=== PATIENT | male | born 1990 | race Two or more races ===

== ENCOUNTER 2023-10-23 03:08 | Inpatient (IN) | payer OTHER, SELFPAY ==
[2023-10-23] VITALS (13 sets, daily range): BP systolic 118–154; BP diastolic 72–98; PULSE 72–100; RESP 12–18; TEMP 36.1–37.1; O2SAT 92–99; BMI 23.7
--- NOTE | ~2023-10-23 | XR_ITS ---
EXAMINATION: XR ANKLE, LEFT CLINICAL INFORMATION: Injury/pain COMPARISON: None available. TECHNIQUE: AP, lateral, and mortise views of the left ankle. FINDINGS: There is a spiral fracture of the distal tibial diametaphysis, with one cortex width lateral displacement of the dominant distal fracture fragment with respect to the proximal tibia, and a tiny comminution fragment medially. There is a comminuted distal fibular diametaphyseal fracture with one half shaft width posterior displacement of the distal fibular fracture fragment with respect to the proximal fibula and mild apex anterior angulation, with a mildly angulated lateral comminution fragment. The fracture extends to the superolateral aspect of the ankle mortise, however the ankle mortise remains congruent. Associated soft tissue swelling about the ankle. XR/XR ankle LT min 3V IMPRESSION: * Distal tibial and fibular fractures as described. * Ankle mortise remains congruent. * Soft tissue swelling about the ankle.
--- NOTE | ~2023-10-23 | FL_ITS ---
EXAMINATION: XR FLUOROSCOPY WITH IMAGES CLINICAL INFORMATION: Left tibial IM nail. Tibial ORIF COMPARISON: X-rays of the left ankle performed earlier same day TECHNIQUE: Fluoroscopy Supervised By: Dr. Underwood. Fluoroscopy Time: 2.7 minutes. Cumulative Dose: 8.93 mGy. DAP: 0.148 Gycm2. Images: 6. FINDINGS: Intraoperative imaging demonstrates orthopedic fixation with antegrade lukas with interlocking screws in the tibia crossing the previously noted tibial fracture with overall improved alignment. Plate and screw fixation extending along the lateral aspect of the distal fibula crossing the previous noted fracture with improved alignment. FL/FL guidance in OR IMPRESSION: Intraoperative imaging for ORIF of left ankle fracture. Improved alignment compared with preoperative radiographs
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
[2023-10-23] MEDS: Morphine Sulfate Immed Release 15 MG TABLET PO (04:16)
[2023-10-23 04:56] LABS: Basophils Percent Auto 0.3 % (0-2); Eosinophils Absolute Auto 0.1 X10*3/uL (0.0-0.4); Eosinophils Percent Auto 0.6 % (0-4); Hematocrit 42.1 % (42.0-52.0); Hemoglobin 15.5 g/dl (14.0-18.0); Imm Gran Abs Auto 0.03 X10*3/uL (0.00-0.03); Imm Gran Pct Auto 0.3 % (0.0-0.4); Lymphocytes Absolute Auto 1.3 X10*3/uL (1.2-4.9); Lymphocytes Percent Auto 10.8 % (20-40); MANUAL DIFF FLAG NO; Mean Corpuscular HGB Conc 36.8 g/dl (31.0-36.0); Mean Corpuscular Hemoglobin 34.6 pg (27.0-33.0); Mean Platelet Volume 9.3 fL (9.4-12.4); Monocytes Absolute Auto 0.5 X10*3/uL (0.1-1.2); Platelet Count 278 X10*3/uL (160-400); Red Blood Count 4.48 X10*6/uL (4.60-5.80); Red Cell Distribution Width 11.5 % (11.0-16.0); White Blood Count 11.9 X10*3/uL (4.8-10.8)
[2023-10-23 05:09] LABS: Alanine Aminotransferase 30 U/L (0-40); Alkaline Phosphatase 64 U/L (39-117); Anion Gap 16 (12-20); Aspartate Amino Transferase 27 U/L (5-37); Bilirubin Total 0.8 mg/dL (0.0-1.0); Blood Urea Nitrogen 11 mg/dL (9-16); Calcium 9.6 mg/dL (8.4-10.2); Carbon Dioxide 22 mmol/L (22-29); Chloride 107 mmol/L (96-108); Creatinine Clr Calc Pharmacy 112.8; Estimated Glomerular Filt Rate > 60; Ethanol 197 mg/dL; Glucose Random 117 mg/dL (60-115); Magnesium 2.2 mg/dL (1.6-2.6); Potassium 3.7 mmol/L (3.3-5.1); Sodium 141 mmol/L (135-145); Total Protein 8.2 g/dL (6.5-8.0)
[2023-10-23] MEDS: HYDROmorphone HCl 2 MG/ML VIAL IVPUSH (05:09)
[2023-10-23] MEDS: ondansetron HCL 4 MG/2 ML VIAL IVPUSH (05:09)
[2023-10-23] MEDS: 0.9 % Sodium Chloride 1,000 ML 999 ML IV (05:13)
--- NOTE | 2023-10-23 05:22 | PC.NURSE ---
morphine not effective per pt. pt medicated per MAR with dilaudid. at bedside for splint to L leg. IVF infusing. pt resting comfortably in bed at this time
[2023-10-23] MEDS: HYDROmorphone HCl 0.5 MG/0.5 ML SYRINGE 0.25 MG IVPUSH ×3 (08:23→22:08)
[2023-10-23] MEDS: Lactated Ringers 1,000 ML 100 ML IVCONT (08:24)
[2023-10-23] MEDS: 0.9 % Sodium Chloride Flush 3 ML SYRINGE IVFLUSH (08:25)
[2023-10-23] MEDS: oxyCODONE HCl ER 10 MG TAB.ER.12H PO ×2 (10:08→20:08)
--- NOTE | 2023-10-23 10:17 | PHA.MEDREC ---
Pharmacy Consult ? Medication Reconciliation Pharmacy has completed the medication reconciliation.
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
--- NOTE | 2023-10-23 11:04 | HO.ANESPROP2 ---
HPI - Anesthesia Eval Consult details Narrative: Left tibial and fibular fracture PMFSH Active Problems Active Problems: All Active Problems (Updated 10/23/23 @ 10:56 by Amando Underwood MD) Fracture of distal fibula (Acute) Fracture of tibial shaft, left, closed (Acute) Ankle fracture (Acute) Family History Family history of problems with anesthesia: No Surgical History History of Problems with Anesthesia: No Social History Social History Alcohol intake: current Alcohol intake frequency: a few times a month Smoked in Last 30 Days: No Use of substances other than those prescribed or required for medical reasons: No Advance Directives: No Advance Directives Information Provided: No Meds Allergies Allergy/AdvReac Type Severity Reaction Status Date / Time Amoxicillin Allergy Unknown Unknown Uncoded 10/23/23 03:34 Active Medications: Current Medications Acetaminophen (Acetaminophen 325 Mg Tablet) 650 mg PO Q6H PRN PRN Reason: Pain, Mild (Pain Scale 1-3) Docusate Sodium (Docusate Sodium 100 Mg Capsule) 100 mg PO BID [facility] Last Admin: 10/23/23 10:09 Dose: Not Given Hydromorphone HCl (Hydromorphone Hcl 0.5 Mg/0.5 Ml Syringe) 0.25 mg IVPUSH Q4H PRN; Protocol PRN Reason: Pain, Severe (Pain Scale 7-10) Last Admin: 10/23/23 08:23 Dose: 0.25 mg Lactated Ringer's (Lr) 1,000 mls @ 100 mls/hr IVCONT .Q10H [facility] Last Admin: 10/23/23 08:24 Dose: 100 mls/hr Cefazolin Sodium/Dextrose (Ancef) 2 gm in 50 mls @ 100 mls/hr IV PREOP ONE Stop: 10/23/23 11:27 Ondansetron HCl (Ondansetron Hcl 4 Mg/2 Ml Vial) 4 mg IVPUSH Q8H PRN PRN Reason: Nausea and Vomiting Oxycodone HCl (Oxycodone Hcl Immed Release 5 Mg Tablet) 5 mg PO Q4H PRN PRN Reason: Pain, Moderate(Pain Scale 4-6) Oxycodone HCl (Oxycodone Hcl Er 10 Mg Tab.Er.12h) 10 mg PO BID [facility] Last Admin: 10/23/23 10:08 Dose: 10 mg Sodium Chloride (0.9 % Sodium Chloride Flush 3 Ml Syringe) 3 ml IVFLUSH QSHIFT [facility] Last Admin: 10/23/23 08:25 Dose: 3 ml Home Medications Medication Instructions Recorded Confirmed Last Taken Type No Known Home Meds 10/23/23 10/23/23 Unknown History Exam Height,Weight and Vital Signs: Height 5 ft 11 in Weight 77.111 kg Last Vital Signs Temp 98.5 F 10/23/23 07:46 Pulse 82 10/23/23 07:46 Resp 14 10/23/23 07:46 BP 119/72 10/23/23 07:46 Pulse Ox 99 10/23/23 07:46 O2 Del Method Room Air 10/23/23 07:46 Pertinent Lab Results Pertinent Lab Results: Laboratory Tests 10/23/23 10/23/23 04:51 09:18 WBC 11.9 H RBC 4.48 L Hgb 15.5 Hct 42.1 MCV 94.0 MCH 34.6 H MCHC 36.8 H RDW 11.5 Plt Count 278 MPV 9.3 L Immature Gran % (Auto) 0.3 Neut % (Auto) 84.0 H Lymph % (Auto) 10.8 L [place] % (Auto) 4.0 Eos % (Auto) 0.6 Baso % (Auto) 0.3 Lymph # (Auto) 1.3 [place] # (Auto) 0.5 Eos # (Auto) 0.1 Baso # (Auto) 0.0 Abs Immat Gran (auto) 0.03 Absolute Neuts (auto) 10.0 H Absolute Nucleated RBC 0.000 Nucleated RBC % (auto) 0.0 Sodium 141 Potassium 3.7 Chloride 107 Carbon Dioxide 22 Anion Gap 16 BUN 11 Creatinine 1.01 Estim Creat Clear Calc 112.8 Estimated GFR > 60 Random Glucose 117 H Calcium 9.6 Magnesium 2.2 Total Bilirubin 0.8 AST 27 ALT 30 Alkaline Phosphatase 64 Total Protein 8.2 H Albumin 5.0 Ethyl Alcohol 197 Blood Type A Negative Antibody Screen NEGATIVE Airway Mallampati Class: II TM Dist: >3cm Neck ROM: Full Loose/Missing/Broken Teeth: No Heart: RRR Lungs: CTA Assessment and Plan Assessment Anesthesia Assessment: Anesthesia Plan Discussed and Chart Reviewed Final Anesthetic Review Family History of Problems with Anesthesia: No History of Problems with Anesthesia: No NPO: Yes ASA Class: I and Emergency Final Preanesthetic Review: No Changes in Pt Med Stat, Meds/Allgs Chart Reviewed, Consent Obtained/Reviewed and Anes Risks/Benef Reviewed Patient Risk: Low Procedure Risk: Intermediate Anesthetic Plan Anesthetic Plan: GA Disposition: Standard PACU
--- NOTE | 2023-10-23 12:14 | PC.NURSE ---
pt transported to OR
--- NOTE | 2023-10-23 16:21 | MHC.CM.PN ---
CM ATTEMPTED TO SEE PT WHO WAS OFF UNIT
--- NOTE | 2023-10-23 18:09 | P.BOP_ITS ---
Brief Operative Note Date of Service: 10/23/23 Pre-op diagnosis: left distal tib/fib fx Post-op diagnosis: same Procedure: IMN left tibia ORIF left fibula Implants: Gilead Alpha [id number] imn with 2 distal and 2 proximal interlocking screws Natanael distal fibula plate Surgeon: Amando Underwood MD Anesthesia: GETA Was an Turbogenerator Operator used for this Procedure?: No Estimated blood loss (mL): 200 Tourniquet time (min): 100 IV fluids (mL): 1,500 Pathology: none sent Condition: stable Disposition: PACU
[2023-10-23] MEDS: Acetaminophen 1,000 MG/100 ML PIGGYBACK 400 MG IV (18:27)
[2023-10-23] MEDS: HYDROmorphone HCl 0.5 MG/0.5 ML SYRINGE IVPUSH (18:34)
[2023-10-23] MEDS: oxyCODONE HCl Immed Release 5 MG TABLET PO (20:08)
[2023-10-23] MEDS: Docusate Sodium 100 MG CAPSULE PO (20:09)
[2023-10-23] MEDS: ceFAZolin Sodium/Dextrose,Iso 2 GM/50 ML PIGGYBACK IV (20:46)
[2023-10-24] VITALS (7 sets, daily range): BP systolic 131–157; BP diastolic 73–94; PULSE 77–100; RESP 15–18; TEMP 36.3–37; O2SAT 96–99
[2023-10-24] MEDS: oxyCODONE HCl Immed Release 5 MG TABLET 10 MG PO ×5 (00:23→16:29)
[2023-10-24] MEDS: Lactated Ringers 1,000 ML 100 ML IVCONT ×3 (00:57→21:58)
[2023-10-24] MEDS: HYDROmorphone HCl 0.5 MG/0.5 ML SYRINGE IVPUSH ×8 (01:04→22:06)
[2023-10-24 05:39] LABS: MANUAL DIFF FLAG NO
[2023-10-24 05:49] LABS: Basophils Percent Auto 0.3 % (0-2); Eosinophils Absolute Auto 0.1 X10*3/uL (0.0-0.4); Eosinophils Percent Auto 1.5 % (0-4); Hematocrit 34.9 % (42.0-52.0); Hemoglobin 12.7 g/dl (14.0-18.0); Imm Gran Abs Auto 0.03 X10*3/uL (0.00-0.03); Imm Gran Pct Auto 0.3 % (0.0-0.4); Lymphocytes Absolute Auto 1.6 X10*3/uL (1.2-4.9); Mean Corpuscular HGB Conc 36.4 g/dl (31.0-36.0); Mean Corpuscular Hemoglobin 35.5 pg (27.0-33.0); Mean Corpuscular Volume 97.5 fL (80.0-98.0); Mean Platelet Volume 10.1 fL (9.4-12.4); Monocytes Absolute Auto 1.2 X10*3/uL (0.1-1.2); Monocytes Percent Auto 12.7 % (2-11); Neutrophils Absolute Auto 6.6 x10*3/uL (2.0-8.3); Neutrophils Percent Auto 68.2 % (45-73); Platelet Count 233 X10*3/uL (160-400); Red Blood Count 3.58 X10*6/uL (4.60-5.80); Red Cell Distribution Width 11.5 % (11.0-16.0); White Blood Count 9.7 X10*3/uL (4.8-10.8)
[2023-10-24 06:07] LABS: Anion Gap 13 (12-20); Blood Urea Nitrogen 8 mg/dL (9-16); Calcium 8.8 mg/dL (8.4-10.2); Carbon Dioxide 27 mmol/L (22-29); Chloride 102 mmol/L (96-108); Creatinine Clr Calc Pharmacy 121.2; Estimated Glomerular Filt Rate > 60; Glucose Fasting 118 mg/dL (60-99); Potassium 3.8 mmol/L (3.3-5.1); Sodium 138 mmol/L (135-145)
[2023-10-24] MEDS: oxyCODONE HCl ER 10 MG TAB.ER.12H PO ×2 (08:03→21:57)
[2023-10-24] MEDS: Docusate Sodium 100 MG CAPSULE PO ×2 (08:04→21:58)
[2023-10-24] MEDS: 0.9 % Sodium Chloride Flush 3 ML SYRINGE IVFLUSH ×2 (10:10→17:25)
[2023-10-24] MEDS: Ketorolac Tromethamine 30 MG/ML VIAL IVPUSH ×2 (11:37→17:55)
--- NOTE | 2023-10-24 13:22 | PM.PNORT ---
Subjective Subjective Date of Service: 10/24/23 Principal diagnosis: left distal tib/fib fracture. POD #1 s/p ORIF Interval history: S/p ORIF. No overnight events. C/o pain Physical Exam Vital Signs: Vital Signs: Last Vital Signs Temp 97.6 F 10/24/23 10:00 Pulse 93 10/24/23 10:00 Resp 18 10/24/23 10:00 BP 141/88 H 10/24/23 10:00 Pulse Ox 96 10/24/23 10:00 O2 Del Method Room Air 10/24/23 10:00 O2 Flow Rate 2 10/23/23 18:50 BMI result Body Mass Index 23.7 Extrem: Other: inc c/d/i compartments soft foot warm and well-perfused SILT Firing ehl/ta/gc Procedures Date of Service Date of Service: 10/24/23 Progress Note: A&P Assessment and plan (1) Fracture of distal fibula: Status: Acute (2) Fracture of tibial shaft, left, closed: Status: Acute Assessment and Plan: Elevate LLE PO and IV pain control May transition to soft dorsiflexion night splint tomorrow and can initiate PT with PWB<25 lbs Continue SCDs and will begin ASA today Time Spent With Patient Time: Total time managing care of this patient today ____ minutes. Quality Stroke Does the patient have a stroke diagnosis?: No VTE Prior VTE?: No VTE Risk Level:: Surgical - moderate VTE Device Contraindication: N/A - Device Ordered VTE Drug Contraindication: Treatment Not Indicated
--- NOTE | 2023-10-24 14:12 | MHC.CM.PN ---
Male 33 s/p Tib/Fib Fxs surgical intervention cast in place. Patient lives with his uncle. He is employed as a flatbed truck driver. He is independent at baseline. His PCP is Dr Sukh Healy. He has not been seen in quite a while per pt. Pt declined the offer to document a HCP. DP Home self care. Pt will arrange for transport home.
[2023-10-24] MEDS: Acetaminophen 325 MG TABLET 650 MG PO ×2 (14:28→21:58)
[2023-10-24] MEDS: Aspirin Enteric Coated 81 MG TABLET.DR 162 MG PO (21:58)
[2023-10-25] VITALS (8 sets, daily range): BP systolic 114–145; BP diastolic 57–84; PULSE 79–99; RESP 16–18; TEMP 35.9–37; O2SAT 94–100
[2023-10-25] MEDS: HYDROmorphone HCl 0.5 MG/0.5 ML SYRINGE IVPUSH ×4 (03:18→21:03)
[2023-10-25] MEDS: Lactated Ringers 1,000 ML 100 ML IVCONT (06:07)
[2023-10-25 07:15] LABS: MANUAL DIFF FLAG NO
[2023-10-25 07:18] LABS: Basophils Percent Auto 0.3 % (0-2); Eosinophils Absolute Auto 0.2 X10*3/uL (0.0-0.4); Eosinophils Percent Auto 2.6 % (0-4); Imm Gran Abs Auto 0.04 X10*3/uL (0.00-0.03); Imm Gran Pct Auto 0.5 % (0.0-0.4); Lymphocytes Absolute Auto 0.9 X10*3/uL (1.2-4.9); Mean Corpuscular HGB Conc 36.4 g/dl (31.0-36.0); Mean Corpuscular Hemoglobin 35.7 pg (27.0-33.0); Mean Corpuscular Volume 98.2 fL (80.0-98.0); Mean Platelet Volume 10.1 fL (9.4-12.4); Monocytes Absolute Auto 0.9 X10*3/uL (0.1-1.2); Neutrophils Absolute Auto 5.3 x10*3/uL (2.0-8.3); Neutrophils Percent Auto 72.6 % (45-73); Platelet Count 190 X10*3/uL (160-400); Red Blood Count 3.36 X10*6/uL (4.60-5.80); Red Cell Distribution Width 11.4 % (11.0-16.0); White Blood Count 7.3 X10*3/uL (4.8-10.8)
[2023-10-25] MEDS: oxyCODONE HCl ER 10 MG TAB.ER.12H PO ×2 (07:29→19:47)
[2023-10-25] MEDS: Acetaminophen 325 MG TABLET 650 MG PO ×3 (07:30→19:46)
[2023-10-25] MEDS: Docusate Sodium 100 MG CAPSULE PO ×2 (07:30→19:46)
[2023-10-25] MEDS: Aspirin Enteric Coated 81 MG TABLET.DR 162 MG PO ×2 (07:30→19:46)
[2023-10-25 07:41] LABS: Anion Gap 12 (12-20); Blood Urea Nitrogen 9 mg/dL (9-16); Calcium 9.4 mg/dL (8.4-10.2); Carbon Dioxide 27 mmol/L (22-29); Chloride 101 mmol/L (96-108); Estimated Glomerular Filt Rate > 60; Glucose Fasting 105 mg/dL (60-99); Potassium 3.7 mmol/L (3.3-5.1); Sodium 136 mmol/L (135-145)
--- NOTE | 2023-10-25 10:37 | PM.PNORT ---
Subjective Subjective Date of Service: 10/25/23 Principal diagnosis: left distal tib/fib fracture. POD #1 s/p ORIF Interval history: .POD 2 s/p Lt tibia IMN with ORIF distal fibula no overnight events pain control improving denies sob, palpitations, chest pain Physical Exam Vital Signs: Vital Signs: Last Vital Signs Temp 98.6 F 10/25/23 07:29 Pulse 91 10/25/23 07:29 Resp 16 10/25/23 07:29 BP 114/57 L 10/25/23 07:29 Pulse Ox 94 10/25/23 07:29 O2 Del Method Room Air 10/25/23 03:13 O2 Flow Rate 2 10/23/23 18:50 BMI result Body Mass Index 23.7 Extrem: Other: inc c/d/i compartments soft foot warm and well-perfused SILT Firing ehl/ta/gc Procedures Date of Service Date of Service: 10/25/23 Progress Note: A&P Assessment and plan (1) Fracture of distal fibula: Status: Acute (2) Fracture of tibial shaft, left, closed: Status: Acute Assessment and Plan: Elevate LLE PO and IV pain control transition to soft dorsiflexion night splint today PT with PWB<25 lbs Continue SCDs and continue ASA Continued need for inpatient stay: PT eval ongoing need for IV pain medication Time Spent With Patient Time: Total time managing care of this patient today ____ minutes. Quality Stroke Does the patient have a stroke diagnosis?: No VTE Prior VTE?: No VTE Risk Level:: Surgical - moderate VTE Device Contraindication: N/A - Device Ordered VTE Drug Contraindication: Treatment Not Indicated
[2023-10-25] MEDS: oxyCODONE HCl Immed Release 5 MG TABLET 10 MG PO ×3 (11:07→19:59)
[2023-10-25] MEDS: 0.9 % Sodium Chloride Flush 3 ML SYRINGE IVFLUSH (15:56)
[2023-10-26] MEDS: Acetaminophen 325 MG TABLET 650 MG PO ×2 (01:26→07:47)
[2023-10-26] MEDS: 0.9 % Sodium Chloride Flush 3 ML SYRINGE IVFLUSH ×2 (01:26→07:47)
[2023-10-26] MEDS: HYDROmorphone HCl 0.5 MG/0.5 ML SYRINGE IVPUSH (01:34)
[2023-10-26 03:16] VITALS: BP 125/77; PULSE 91; RESP 16; TEMP 35.3; O2SAT 98
[2023-10-26] MEDS: oxyCODONE HCl Immed Release 5 MG TABLET 10 MG PO ×2 (06:37→10:57)
[2023-10-26 07:05] LABS: MANUAL DIFF FLAG NO
[2023-10-26 07:08] LABS: Basophils Percent Auto 0.2 % (0-2); Eosinophils Absolute Auto 0.2 X10*3/uL (0.0-0.4); Hematocrit 31.7 % (42.0-52.0); Hemoglobin 11.6 g/dl (14.0-18.0); Imm Gran Abs Auto 0.02 X10*3/uL (0.00-0.03); Imm Gran Pct Auto 0.3 % (0.0-0.4); Lymphocytes Absolute Auto 1.5 X10*3/uL (1.2-4.9); Lymphocytes Percent Auto 24.5 % (20-40); Mean Corpuscular HGB Conc 36.6 g/dl (31.0-36.0); Mean Corpuscular Hemoglobin 35.6 pg (27.0-33.0); Mean Corpuscular Volume 97.2 fL (80.0-98.0); Mean Platelet Volume 9.8 fL (9.4-12.4); Monocytes Absolute Auto 0.6 X10*3/uL (0.1-1.2); Monocytes Percent Auto 10.2 % (2-11); Neutrophils Absolute Auto 3.8 x10*3/uL (2.0-8.3); Neutrophils Percent Auto 61.8 % (45-73); Platelet Count 211 X10*3/uL (160-400); Red Blood Count 3.26 X10*6/uL (4.60-5.80); Red Cell Distribution Width 11.3 % (11.0-16.0); White Blood Count 6.1 X10*3/uL (4.8-10.8)
[2023-10-26 07:26] LABS: Anion Gap 12 (12-20); Blood Urea Nitrogen 9 mg/dL (9-16); Calcium 9.7 mg/dL (8.4-10.2); Carbon Dioxide 27 mmol/L (22-29); Chloride 102 mmol/L (96-108); Creatinine Clr Calc Pharmacy 144.2; Estimated Glomerular Filt Rate > 60; Glucose Fasting 97 mg/dL (60-99); Potassium 3.5 mmol/L (3.3-5.1); Sodium 137 mmol/L (135-145)
[2023-10-26 07:33] VITALS: BP 127/83; PULSE 89; RESP 16; TEMP 36.6; O2SAT 97
[2023-10-26] MEDS: Aspirin Enteric Coated 81 MG TABLET.DR 162 MG PO (07:47)
[2023-10-26] MEDS: Docusate Sodium 100 MG CAPSULE PO (07:47)
[2023-10-26] MEDS: oxyCODONE HCl ER 10 MG TAB.ER.12H PO (07:47)
--- NOTE | 2023-10-26 09:09 | P.DS_ITS ---
DS: Providers Provider Date of Service: 10/26/23 Date of admission: 10/23/23 07:39 Primary care physician: Sukh Healy MD Consults: 10/23/23 07:39 Consult to Hospitalist Routine Comment: Consulting Provider: Hospitalist Reason For Exam: pre op clearance DS: Diagnosis Discharge Diagnosis (1) Fracture of distal fibula: Status: Acute (2) Fracture of tibial shaft, left, closed: Status: Acute DS: Summary Hospital Course Hospital Course: The patient underwent a successful ORIF left distal dibula with IMN left tibia on 10/23/23, he was transferred to PACU and then to the floor to recover. During their stay, their vitals were stable, afebrile at 98.0. Labs were unremarkable, H/H 11.6/ 31.7 . POD 1 he was started on ASA for DVT ppx, they also received Physical Therapy services twice a day. Physical therapy should include gait training, ROM to tolerance and quad strength. He is PWB, <25lbs. Prior to discharge, his dressing was changed, incision clean dry and intact, new dressing applied. He was fit for a night splint boot to wear at rest and while sleeping.. Any concerns with the dressing, please contact orthopedic office. No showering. The plan is to be discharged home. Time Attestation Discharge coordination time: Less than 30 minutes Quality: Safe Use of Opioids Does Pt have an Active Cancer Diagnosis on the Problem List?: No Quality: Stroke Does the patient have a stroke diagnosis?: No Physical Exam Vital Signs: Vital Signs: Last Vital Signs Temp 98 F 10/26/23 07:33 Pulse 89 10/26/23 07:33 Resp 16 10/26/23 07:33 BP 127/83 10/26/23 07:33 Pulse Ox 97 10/26/23 07:33 O2 Del Method Room Air 10/26/23 07:33 O2 Flow Rate 2 10/23/23 18:50 BMI result Body Mass Index 23.7 DS: Data Data Completed and Pending Labs on day of discharge: Laboratory Results - last 24 hr 10/26/23 06:30 WBC 6.1 RBC 3.26 L Hgb 11.6 L Hct 31.7 L MCV 97.2 MCH 35.6 H MCHC 36.6 H RDW 11.3 Plt Count 211 MPV 9.8 Immature Gran % (Auto) 0.3 Neut % (Auto) 61.8 Lymph % (Auto) 24.5 [place] % (Auto) 10.2 Eos % (Auto) 3.0 Baso % (Auto) 0.2 Lymph # (Auto) 1.5 [place] # (Auto) 0.6 Eos # (Auto) 0.2 Baso # (Auto) 0.0 Abs Immat Gran (auto) 0.02 Absolute Neuts (auto) 3.8 Absolute Nucleated RBC 0.000 Nucleated RBC % (auto) 0.0 Sodium 137 Potassium 3.5 Chloride 102 Carbon Dioxide 27 Anion Gap 12 BUN 9 Creatinine 0.79 Estim Creat Clear Calc 144.2 Estimated GFR > 60 Fasting Glucose 97 Calcium 9.7 Discharge Plan Discharge Anticipated Discharge Date/Time: 10/26/23 09:05 Patient Disposition: Home, Self-Care Discharge Diagnosis: s/p IMN left tibia ORIF left fibula Referrals: Cici Sánchez PA-C [Physician Jewel Hole Gauger] - 2 Weeks (11/11/23 10:00 [facility] [place] [facility] Cici Sánchez PA-C) Discharge Medications: New acetaminophen 325 mg Tablet 650 mg PO Q6H 30 Days Qty: 240 0RF aspirin 81 mg Tablet,Delayed Release (Dr/Ec) 162 mg PO BID 42 Days Qty: 168 0RF docusate sodium 100 mg Capsule 100 mg PO BID 14 Days Qty: 28 0RF oxycodone 5 mg Tablet 5 mg PO Q4H PRN (Reason: Pain, Moderate(Pain Scale 4-6)) 7 Days Qty: 42 0RF Rx Instructions: Partial Fill upon patient request. No Action (DME) Crutches See Rx Instructions .ROUTE .MEDSUPPLY Qty: 1 0RF Rx Instructions: As directed Discharge Orders: Discharge Order (Routine); Ordered 10/26/23 Ordered By: Adrian Miller Diet: Regular diet Activity on Discharge: Use cane or walker Stand Alone Forms: Patient Portal Discharge page, Work/School Release Care Plan Goals: Restore function of joint Health Concerns: none Plan of Treatment: * TTWB x6 weeks * ROM of knee as tolerated * Dressing changes prn-dry dressings * Continue anticoagulant x 6 weeks * No tub bath or shower-Keep dressing clean, dry and intact * Follow up with orthopedics in 2 weeks Assessment: as above Discharge Date/Time: 10/26/23 11:37
[2023-10-26 09:49] VITALS: BP 127/83; PULSE 89; O2SAT 97
--- NOTE | 2023-10-26 09:57 | MHC.CM.PN ---
Male 33 s/p fx L Tib+Fib surgical intervention. He is discharged to home self care. The patient has arranged for transportation home.
--- NOTE | 2023-11-02 14:58 | W.PM.OPN ---
Operative Note Operative Note Date of Service: 11/23/23 Narrative: Date of Service: 10/23/23 Pre-op diagnosis: left distal tib/fib fx Post-op diagnosis: same Procedure: IMN left tibia ORIF left fibula Implants: [place] Alpha [id number] imn with 2 distal and 2 proximal interlocking screws Natanael distal fibula plate Surgeon: Amando Underwood MD Anesthesia: GETA Was an Odd Job Laborer used for this Procedure?: No Estimated blood loss (mL): 200 Tourniquet time (min): 100 IV fluids (mL): 1,500 Pathology: none sent Condition: stable Disposition: PACU Procedure in detail: Patient was brought to the operating room and placed supine on the operative table. All bony prominences were well padded and a time-out was called to identify proper site proper procedure proper surgeon. IV antibiotics per weight were administered. I began by exsanguinating limb is slightly tourniquet to 300 mm Hg. I then made a standard posterolateral incision over the fibula. Full-thickness flaps were taken down to the fibular shaft and distal fibula. The fracture was identified and cleaned with a combination of curette, rongeur and irrigation. This was a severely comminuted fracture with portion of bone loss at the metadiaphysis of the distal fibula. I brought the fibula out to length in order to better reduce the tibia. I used a 8 hole distal fibular locking plate and provisionally placed this across the fracture adhering it to the proximal shaft using standard AO technique. I then placed 4 distal locking screws through the distal aspect of the fracture and turned my attention to the tibia. Using a standard trans tibial approach I made an incision from the distal pole of the patella to the tibial tubercle. The patellar tendon was identified in the paratenon was incised and then a longitudinal incision through the midportion of the patellar tendon was made and a K-wire was placed onto the anterior proximal tibia. Lateral and anterior projections were obtained using fluoroscopy to confirm the start site . The guidewire was then placed into the metadiaphysis and then over reamed. A ball tipped guidewire was then placed into the distal tibia. I then sized a 345 mm IM nail. Distallythe reduction was maintained with a combination of traction and varus pressure. I then reamed to a 11.5 and placed a 10 x 345 mm IM nail distally to the level of the physeal scar. Biplanar fluoroscopy was used to confirm my reduction and I was satisfied with this. Using perfect pokagon technique to interlocking screws were placed from medial to lateral distally. The fibula reduction was maintained and I was satisfied with both the distal fibula and distal tibia on the AP and lateral projections. I then returned to the proximal aspect of the tibia and placed 2 oblique interlocking screws using the proximal aiming device. Therefore all instrumentation was removed and copious irrigation was performed. The patellar tendon and then the paratenon were repaired with absorbable suture. The skin was closed with meron. The lateral incision was closed with absorbable suture and meron after copious irrigation. The patient was placed into sterile dressings and a well-padded posterior splint. Tourniquet was let down and the patient was extubated brought to recovery room in stable condition there were no known complications.
== END 2023-10-26 11:37 | disposition home or self-care (01) | DRG 494 ==
LOC: HO.ED 07:08 → HO.EDOVER 08:05 → HO.S3 08:20
PROVIDERS: Orthopaedic Surgery; Admitting Provider Physician Assistant; Emergency Provider Internal Medicine; PCP Internal Medicine; Visit Provider Physician Assistant
PROC: 0QSK04Z Reposition Left Fibula with Internal Fixation Device, Open Approach (ICD-10-PCS; principal; 2023-10-23 14:00)
PROC: 0QSK04Z Reposition Left Fibula with Internal Fixation Device, Open Approach (ICD-10-PCS; 2023-10-23 14:00)
DX: S82.832A Other fracture of upper and lower end of left fibula, initial encounter for closed fracture (principal); S82.302A Unspecified fracture of lower end of left tibia, initial encounter for closed fracture; F17.290 Nicotine dependence, other tobacco product, uncomplicated; Y90.6 Blood alcohol level of 120-199 mg/100 ml; F10.929 Alcohol use, unspecified with intoxication, unspecified; W19.XXXA Unspecified fall, initial encounter; Z71.6 Tobacco abuse counseling
CPT/HCPCS: 36415; 73610; 80048; 80053; 80307; 83735; 85025; 86850; 86900; 86901; 97116; 97161; 97530; 99024; 99285; C1713; C1769; J0131; J0665; J0690; J1170; J1885; J2405; J2704; J3010; J7120

== ENCOUNTER → 2023-10-23 07:39 | Outpatient (BNV) | payer OTHER, SELFPAY | PROVIDERS: Admitting Provider Physician Assistant; Emergency Provider Internal Medicine; Visit Provider Internal Medicine | DX: S82.899A Other fracture of unspecified lower leg, initial encounter for closed fracture (principal) | CPT/HCPCS: 99221 ==

== ENCOUNTER → 2023-10-23 07:39 | Outpatient (BNV) | payer OTHER, SELFPAY | PROVIDERS: Admitting Provider Physician Assistant; Emergency Provider Internal Medicine; Visit Provider Orthopaedic Surgery | DX: S82.839A Other fracture of upper and lower end of unspecified fibula, initial encounter for closed fracture (principal); S82.202A Unspecified fracture of shaft of left tibia, initial encounter for closed fracture | CPT/HCPCS: 27759; 27826; 99024; 99223 ==

== ENCOUNTER 2023-11-11 09:58 | Outpatient (AMB) | payer OTHER, SELFPAY ==
--- NOTE | 2023-11-11 10:05 | MHC.OFFVIS ---
Intake Intake Visit Reasons: PO- s/p Left tib/fib imn and ORIF 10/23/23 NE Intake Note: Shahab is a 33 year old male who presents today for a post op appointment s/p Left tib/fib imn and ORIF 10/23/23 NE. Patient reports having pain near his ankle. Allergies Amoxicillin Allergy (Unknown, Uncoded 10/23/23 03:34) Unknown HPI PO- s/p Left tib/fib imn and ORIF 10/23/23 NE HPI Details 33-year-old male who presents in the office today 19 days status post left fibula IM nailing and left tibia ORIF, which was performed on 10/23/[address] Underwood. The patient reports he is having pain around the left ankle. [facility] Social History Household Members: Family Housing: House Do you presently have visiting nurse or other home services: No Alcohol intake: current Alcohol intake frequency: a few times a month Patient Tobacco Use Status: Never used Tobacco Tobacco use type: Smokeless Tobacco e-Cigarette/Vaping Use: Currently Using Second Hand Smoke Exposure: No service: No Review of Systems Const All systems reviewed & are unremarkable except as noted in HPI and below Physical Exam Const General: cooperative, healthy appearing and no acute distress Resp Effort & Inspection: normal respiratory effort and able to speak in complete sentences Cardio Rate: regular rate Peripheral pulses: Peripheral pulses 2+ throughout GI Palpation (GI): Soft to palpation Skin Lesions: no lesions Rashes: no rashes Extrem Other: Left lower extremity: Incision site is clean, dry, and intact. Thorp intact. No surrounding erythema or drainage. No signs of infection. Able to perform flexion and extension at the knee, but is lacking 10 degrees of full extension. Able to dorsiflex and plantarflex but is limited due to stiffness. Sensation intact. Pedal pulse intact. Office Procedures Casting/Splints [id number]-[id number] Leg Cast Application Procedure code (CPT) selection complete Assessment & Plan Assessment & Plan (1) Fracture of distal fibula: Code(s): S82.839A - Other fracture of upper and lower end of unspecified fibula, initial encounter for closed fracture (2) Fracture of tibial shaft, left, closed: Code(s): S82.A - Unspecified fracture of shaft of left tibia, initial encounter for closed fracture Plan Mr. Cadena is a 33-year-old male who presents in the office today 19 days status post left fibula IM nailing and left tibia ORIF, which was performed on 10/23/[address] Underwood. The patient reports he is having pain around the left ankle. Dr. Underwood was in the office today and was available to review the x-rays and consult with me, but was unable to see the patient, however a collaborative treatment plan was made. Stephanie were removed and steri-stripes were applied. The patient was placed in a custom made short leg cast. He should remain non-weight bearing for a total of 3 months post-op. Follow up will be in 4 weeks with repeat x-rays, or sooner if needed. X-rays of the left lower extremity which were obtained while in the office today and were reviewed by me, Cici Sánchez PA-C, revealed intact orthopedic hardware with routine healing. Orders: Orders XR tibia fibula LT 2V Today S82.202A - Unspecified fracture of shaft of left tibia, initial encounter for closed fracture, S82.839A - Other fracture of upper and lower end of unspecified fibula, initial encounter for closed fracture, S82.899A - Other fracture of unspecified lower leg, initial encounter for closed fracture Patient Instructions: Scribed for Cici Sánchez PA-C by Ailyn Lau director of medical staff services, on 11/08/2023 at 9:59 am, EST. Coding Level of Care Code Global (27818) Diagnoses Fracture of distal fibula S82.839A Fracture of tibial shaft, left, closed S82.202A CPT Codes Casting - CPT: 44384-Rbe[employer] Leg Cast Application ([id number])
== END 2023-11-11 11:15 | disposition home or self-care (01) ==
PROVIDERS: PCP Internal Medicine; Visit Provider Physician Assistant
DX: S82.832A Other fracture of upper and lower end of left fibula, initial encounter for closed fracture (principal); S82.202A Unspecified fracture of shaft of left tibia, initial encounter for closed fracture
CPT/HCPCS: 29405; 99024

== ENCOUNTER 2023-11-11 10:21 | Outpatient (REF) | payer OTHER, SELFPAY ==
--- NOTE | ~2023-11-11 | XR_ITS ---
EXAMINATION: XR TIBIA AND FIBULA, LEFT CLINICAL INFORMATION: Follow-up fracture COMPARISON: 10/23/2023 TECHNIQUE: AP and lateral views of the left tibia and fibula were obtained. FINDINGS: Intramedullary lukas, proximal and distal tibial screws are seen with improved alignment of displaced comminuted distal tibial fractures. Side plate and screws traverse comminuted displaced distal fibular fractures with improved alignment. Mortise and visualized knee joints appear intact. Surgical skin meron identified about the medial, lateral ankle and anterior infrapatellar region. Improved ankle soft tissue swelling. XR/XR tibia fibula LT 2V IMPRESSION: Interval distal tibial and fibular ORIFs with improved appearance of distal tibial and fibular comminuted fractures and satisfactory alignment.
== END 2023-11-11 10:22 | disposition home or self-care (01) ==
LOC: HO.HOSX 10:21
PROVIDERS: Visit Provider Physician Assistant
DX: S82.202A Unspecified fracture of shaft of left tibia, initial encounter for closed fracture (principal); S82.832D Other fracture of upper and lower end of left fibula, subsequent encounter for closed fracture with routine healing
CPT/HCPCS: 29405; 73590

== ENCOUNTER 2023-12-02 13:33 | Outpatient (REF) | payer OTHER, SELFPAY ==
--- NOTE | ~2023-12-02 | XR_ITS ---
EXAMINATION: XR TIBIA AND FIBULA, LEFT CLINICAL INFORMATION: Follow-up fracture. COMPARISON: Prior examinations, most recently 11/11/2023. TECHNIQUE: AP and lateral views of the left tibia and fibula were obtained. FINDINGS: There is stable alignment status-post ORIF of distal tibial and fibular fractures, with intact tibial intramedullary lukas and proximal and distal fixator screws and fibular fixator plate and screws. No hardware failure or loosening is seen. There is no new callus formation. The ankle mortise is intact. No focal soft tissue swelling, gas or foreign body is seen. XR/XR tibia fibula LT 2V IMPRESSION: There is stable alignment status-post ORIF for distal left tibial and fibular fractures. No hardware failure loosening is seen. This no significant new callus formation.
== END 2023-12-02 13:34 | disposition home or self-care (01) ==
LOC: HO.HOSX 13:33
PROVIDERS: Visit Provider Physician Assistant
DX: Z13.89 Encounter for screening for other disorder (principal)

== ENCOUNTER 2023-12-09 12:44 | Outpatient (AMB) | payer OTHER, SELFPAY ==
--- NOTE | 2023-12-09 13:00 | A.OFFVIS_ITS ---
Intake Intake Visit Reasons: PO- s/p Left tib/fib imn and ORIF 10/23/23 NE Intake Note: Shahab is a 33 year old male who presents today for a post op appointment s/p Left tib/fib imn and ORIF 10/23/23 NE. Patient reports he is feeling some numbness on the lateral aspect of the left knee and in his big toe. Yet he states that he is doing well. Allergies Amoxicillin Allergy (Unknown, Uncoded 10/23/23 03:34) Unknown HPI PO- s/p Left tib/fib imn and ORIF 10/23/23 NE HPI Details 33-year-old male who presents in the off ice today 6 weeks status post left fibula IM nailing and left tibia ORIF, which was performed on 10/23/[address] Underwood. I last saw the patient in the office on 11/11/2023 when the patient was placed in a short leg cast and instructed to remain non-weight bearing. While in the office today he reports he feels some numbness on the lateral aspect of the left knee and in the big toe. Overall, he states he is doing well. [facility] Social History Household Members: Family Housing: House Do you presently have visiting nurse or other home services: No Alcohol intake: current Alcohol intake frequency: a few times a month Patient Tobacco Use Status: Never used Tobacco Tobacco use type: Smokeless Tobacco e-Cigarette/Vaping Use: Currently Using Second Hand Smoke Exposure: No service: No Review of Systems Const All systems reviewed & are unremarkable except as noted in HPI and below Physical Exam Const General: cooperative, healthy appearing and no acute distress Resp Effort & Inspection: normal respiratory effort and able to speak in complete sentences Cardio Rate: regular rate Peripheral pulses: Peripheral pulses 2+ throughout GI Palpation (GI): Soft to palpation Skin Lesions: no lesions Rashes: no rashes Extrem Other: Left lower extremity: Normal to inspection. No ecchymosis, erythema, or edema. Incision site is clean, dry, and intact. No signs of infection. Stiffness with dorsiflexion, plantarflexion, pronation, and supination. Sensation intact. Pedal pulse intact. Assessment & Plan Assessment & Plan (1) Fracture of distal fibula: Code(s): S82.839A - Other fracture of upper and lower end of unspecified fibula, initial encounter for closed fracture (2) Fracture of tibial shaft, left, closed: Code(s): S82.202A - Unspecified fracture of shaft of left tibia, initial encounter for closed fracture Plan Mr. Cadena is a 33-year-old male who presents in the office today 6 weeks status post left fibula IM nailing and left tibia ORIF, which was performed on 10/23/[address] Underwood. I last saw the patient in the office on 11/11/2023 when the patient was placed in a short leg cast and instructed to remain non- weight bearing. While in the office today he reports he feels some numbness on the lateral aspect of the left knee and in the big toe. Overall, he states he is doing well. The patient was placed in a tall walking boot, off the shelf, while in the office today. He will remain non-weight bearing. An order was placed for physical therapy to work on gentle ROM at the ankle. Follow up will be in 6 weeks, or sooner if needed. X-rays of the left tibia/fibula which were obtained while in the office today and were reviewed by me, Cici Sánchez PA-C, revealed intact orthopedic hardware with routine healing. Orders: Orders PT Evaluation and Treatment Today S82.202A - Unspecified fracture of shaft of left tibia, initial encounter for closed fracture, S82.839A - Other fracture of upper and lower end of unspecified fibula, initial encounter for closed fracture, S82.899A - Other fracture of unspecified lower leg, initial encounter for closed fracture XR tibia fibula LT 2V Today S82.202A - Unspecified fracture of shaft of left tibia, initial encounter for closed fracture Patient Instructions: Scribed by Ailyn Lau, medical accounting clerk, for Cici Sánchez PA-C on 12/09/2023 at 12:46 pm, EST. Coding Level of Care Code Global (06623) Diagnoses Fracture of distal fibula S82.839A Fracture of tibial shaft, left, closed S82.202A
== END 2023-12-09 13:44 | disposition home or self-care (01) ==
PROVIDERS: PCP Internal Medicine; Visit Provider Physician Assistant
DX: S82.839A Other fracture of upper and lower end of unspecified fibula, initial encounter for closed fracture (principal); S82.202A Unspecified fracture of shaft of left tibia, initial encounter for closed fracture
CPT/HCPCS: 99024

== ENCOUNTER → 2023-12-09 12:44 | Outpatient (BNVA) | payer OTHER, SELFPAY | PROVIDERS: PCP Internal Medicine; Visit Provider Physician Assistant | DX: S82.839D Other fracture of upper and lower end of unspecified fibula, subsequent encounter for closed fracture with routine healing (principal); S82.202D Unspecified fracture of shaft of left tibia, subsequent encounter for closed fracture with routine healing | CPT/HCPCS: 73590 ==

== ENCOUNTER 2024-01-17 13:25 | Outpatient (AMB) | payer OTHER, SELFPAY ==
--- NOTE | 2024-01-17 13:36 | MHC.OFFVIS ---
Intake Intake Visit Reasons: ov-s/p Left tib/fib imn and ORIF 10/23/23 NE Intake Note: Shahab is a 33 year old male who presents today for a post op s/p left tib/fib imn and ORIF 10/23/23 NE. Patient reports having stiffness at his left knee and ankle. He states that he noticed the stiffness when he was participating at PT. Patient is still having numbness in his left great toe since the surgery. Allergies Amoxicillin Allergy (Unknown, Uncoded 10/23/23 03:34) Unknown HPI ov-s/p Left tib/fib imn and ORIF 10/23/23 NE HPI Details 33-year-old male who presents in the office today 3 months status post left fibula IM nailing and left tibia ORIF, which was performed on 10/23/[address] Underwood. I last saw the patient in the office on 12/09/2023 at which time she was placed in a tall walking boot and was to remain non-weight bearing. He was referred to physical therapy. While in the office today the patient reports having stiffness in the left knee and ankle. He states he notices it when participating in physical therapy. He also reports continued numbness in the left great toe that has been present since surgery. [facility]MERLY [facility], [facility]1983 Social History (Updated 01/17/24 @ 13:40 by Heavenly Lima) Household Members: Family Housing: House Do you presently have visiting nurse or other home services: No Alcohol intake: current Alcohol intake frequency: a few times a month Patient Tobacco Use Status: Never used Tobacco Tobacco use type: Smokeless Tobacco e-Cigarette/Vaping Use: Currently Using Second Hand Smoke Exposure: No service: No Current occupational status: employed Current occupation: professional tester/lift trucker Review of Systems Const All systems reviewed & are unremarkable except as noted in HPI and below Physical Exam Const General: cooperative, healthy appearing and no acute distress Resp Effort & Inspection: normal respiratory effort and able to speak in complete sentences Cardio Rate: regular rate Peripheral pulses: Peripheral pulses 2+ throughout GI Palpation (GI): Soft to palpation Skin Lesions: no lesions Rashes: no rashes Extrem Other: Left lower extremity: Knee and ankle incision site are well approximated and fully healed with no signs of infection. Knee extension lacking roughly 10 degrees. Able to fully flex and extend at the knee. Significant stiffness with dorsiflexion and plantarflexion, pronation and supination of the ankle. Reports some numbness along the plantar aspect of the great toe, but after repetitive touching sensation returns to baseline. Capillary refill is brisk. Pedal pulse intact. Assessment & Plan Assessment & Plan (1) Fracture of distal fibula: Code(s): S82.839A - Other fracture of upper and lower end of unspecified fibula, initial encounter for closed fracture (2) Fracture of tibial shaft, left, closed: Code(s): S82.A - Unspecified fracture of shaft of left tibia, initial encounter for closed fracture Plan Mr. Cadena is a 33-year-old male who presents in the office today 3 months status post left fibula IM nailing and left tibia ORIF, which was performed on 10/23/[address] Underwood. I last saw the patient in the office on 12/09/2023 at which time she was placed in a tall walking boot and was to remain non-weight bearing. He was referred to physical therapy. While in the office today the patient reports having stiffness in the left knee and ankle. He states he notices it when participating in physical therapy. He also reports continued numbness in the left great toe that has been present since surgery. Patient may begin to weight bear as tolerated in the boot and with crutches. He will continue to work with physical therapy. His goal with physical therapy is to begin to wean out of the boot in the next 2 weeks. He will focus on ROM of the knee and ankle. He will remain out of work until follow up. Follow up will be in 6 weeks, or sooner if needed. X-rays of the left fibula which were obtained while in the office today and were reviewed by me, Cici Sánchez PA-C, revealed intact orthopedic hardware with routine healing. Orders: Orders XR tibia fibula LT 2V Today S82.202A - Unspecified fracture of shaft of left tibia, initial encounter for closed fracture, S82.839A - Other fracture of upper and lower end of unspecified fibula, initial encounter for closed fracture, S82.899A - Other fracture of unspecified lower leg, initial encounter for closed fracture Patient Instructions: Scribed by Ailyn Lau medical assistant instructor, for Cici Sánchez PA-C on 01/17/2024 at 1:43 pm, EST. Coding Level of Care Code Global (86724) Diagnoses Fracture of distal fibula S82.839A Fracture of tibial shaft, left, closed S82.A
== END 2024-01-17 16:00 ==
PROVIDERS: PCP Internal Medicine; Visit Provider Physician Assistant
DX: S82.839A Other fracture of upper and lower end of unspecified fibula, initial encounter for closed fracture (principal); S82.202A Unspecified fracture of shaft of left tibia, initial encounter for closed fracture
CPT/HCPCS: 99024

== ENCOUNTER 2024-01-17 14:56 | Outpatient (REF) | payer OTHER, SELFPAY ==
--- NOTE | ~2024-01-17 | XR_ITS ---
EXAMINATION: XR TIBIA AND FIBULA, LEFT CLINICAL INFORMATION: Left tibia and fibula fracture COMPARISON: Left tibia and fibula x-ray on 12/09/2023 TECHNIQUE: AP and lateral views of the left tibia and fibula were obtained. FINDINGS: BONES: Oblique fracture distal left fibular shaft, close to anatomical reduction and internal fixation with lateral side plate and cortical screws is seen. There is interval partial bony healing with decrease in radiolucent bone gap. Oblique fracture distal left tibial shaft with mild posterior displacement, fixation with left tibial intramedullary gamma nail, proximal and distal tibial shaft transfixion screws is seen. There is interval decrease in radiolucent bone gap. JOINTS: Alignment of joints is normal. SOFT TISSUE: Soft tissue is normal. No radiopaque foreign body or abnormal air collection is seen. XR/XR tibia fibula LT 2V IMPRESSION: 1. Unchanged Healing distal left fibular and tibial shaft fractures, status post internal fixation. 2. Interval decrease in radiolucent bone gap in distal left tibia and fibula.
== END 2024-01-17 14:57 | disposition home or self-care (01) ==
LOC: HO.HOSX 14:56
PROVIDERS: Visit Provider Physician Assistant
DX: S82.832D Other fracture of upper and lower end of left fibula, subsequent encounter for closed fracture with routine healing (principal); S82.202D Unspecified fracture of shaft of left tibia, subsequent encounter for closed fracture with routine healing
CPT/HCPCS: 73590

== ENCOUNTER 2024-02-24 09:09 | Outpatient (REF) | payer OTHER, SELFPAY ==
--- NOTE | ~2024-02-24 | XR_ITS ---
EXAMINATION: XR TIBIA AND FIBULA, LEFT CLINICAL INFORMATION: Fracture fibula. COMPARISON: Prior radiographs most recent December 2023 TECHNIQUE: AP and lateral views of the left tibia and fibula were obtained. FINDINGS: Segun and interlocking screw fixation noted in the tibia crossing the spiral oblique fracture best visualized on the lateral projection essentially unchanged in appearance and alignment.. There is some callus formation noted along the proximal aspect of the fracture. Hardware intact and unchanged. Fibula: Plate and screw fixation noted across the previously noted comminuted fracture. Alignment unchanged. Fracture lines remain visible. There is appears to be at least some callus formation noted. The talocrural joint is unremarkable. No additional bone or soft tissue abnormalities. XR/XR tibia fibula LT 2V IMPRESSION: Postoperative changes related to ORIF of tibia and fibular fractures. No change in alignment compared with prior. There is some callus formation noted along the proximal aspect of the fracture.
== END 2024-02-24 09:10 | disposition home or self-care (01) ==
LOC: HO.HOSX 09:09
PROVIDERS: Visit Provider Physician Assistant
DX: S82.832D Other fracture of upper and lower end of left fibula, subsequent encounter for closed fracture with routine healing (principal); S82.202D Unspecified fracture of shaft of left tibia, subsequent encounter for closed fracture with routine healing
CPT/HCPCS: 73590

== ENCOUNTER 2024-02-24 11:16 | Outpatient (AMB) | payer OTHER, SELFPAY ==
--- NOTE | 2024-02-24 11:38 | A.OFFVIS_ITS ---
Intake Visit Reasons: OV - Left tib/fib imn and ORIF 10/23/23 NE Intake Note: Shahab is a 33 year old male who presents today for a follow up s/p left tib/fib imn and ORIF 10/23/23 NE. Patient reports still having pain after P.T. He expresses having pain down to his ankle and having some swelling. He states that today feels a bit better but not fully. Allergies Amoxicillin Allergy (Unknown, Uncoded 10/23/23 03:34) Unknown HPI HPI OV - Left tib/fib imn and ORIF 10/23/23 NE: Details: 33-year-old male who presents in the office today 4 months status post left fibula IM nailing and left tibia ORIF, which was performed on 10/23/[address] Underwood. I last saw the patient on 01/17/2024 when he was to being to weight bear as tolerated in the boot with crutches. Instructed to continue PT with a goal to wean out of the boot in 2 weeks. He is currently out of work. While in the office today the patient reports having pain after PT. He states he has pain radiating down to his ankle with some edema. He states the left lower extremity feels a bit better in the office but not fully resolved. [facility] Social History Household Members: Family Housing: House Do you presently have visiting nurse or other home services: No Alcohol intake: current Alcohol intake frequency: a few times a month Patient Tobacco Use Status: Never used Tobacco Tobacco use type: Smokeless Tobacco e-Cigarette/Vaping Use: Currently Using Second Hand Smoke Exposure: No service: No Current occupational status: employed Current occupation: professional sanitation truck driver Review of Systems Const All systems reviewed & are unremarkable except as noted in HPI and below Physical Exam Const General: cooperative, healthy appearing and no acute distress Resp Effort & Inspection: normal respiratory effort and able to speak in complete sentences Cardio Rate: regular rate Peripheral pulses: Peripheral pulses 2+ throughout GI Palpation (GI): Soft to palpation Skin Lesions: no lesions Rashes: no rashes Extrem Other: Left lower extremity: Incision sites at the knee and ankle are clean, dry, and intact; completely healed without evidence of infection. Significant quad weakness with straight leg raise. No tenderness to palpation over the medial or lateral malleolus. No tenderness to palpation with tibia/fibula squeeze. Full ROM of the knee and ankle. NVI. Assessment & Plan Assessment & Plan (1) Fracture of distal fibula: Code(s): S82.839A - Other fracture of upper and lower end of unspecified fibula, initial encounter for closed fracture Category: Medical Qualifiers: Encounter type: subsequent encounter Fracture healing: with routine healing Fracture morphology: unspecified fracture morphology Fracture type: closed Laterality: left Qualified Code(s): S82.832D - Other fracture of upper and lower end of left fibula, subsequent encounter for closed fracture with routine healing (2) Fracture of tibial shaft, left, closed: Code(s): S82.202A - Unspecified fracture of shaft of left tibia, initial encounter for closed fracture Category: Medical Qualifiers: Encounter type: subsequent encounter Fracture healing: with routine healing Fracture morphology: unspecified fracture morphology Qualified Code(s): S82.202D - Unspecified fracture of shaft of left tibia, subsequent encounter for closed fracture with routine healing Plan Mr. Cadena is a 33-year-old male who presents in the office today 4 months status post left fibula IM nailing and left tibia ORIF, which was performed on 10/23/[address] Underwood. I last saw the patient on 01/17/2024 when he was to being to weight bear as tolerated in the boot with crutches. Instructed to continue PT with a goal to wean out of the boot in 2 weeks. He is currently out of work. While in the office today the patient reports having pain after PT. He states he has pain radiating down to his ankle with some edema. He states the left lower extremity feels a bit better in the office but not fully resolved. Patient just transitioned out of the walking boot and into a supportive sneaker about a 1.5 weeks ago with physical therapy. He has noticed a slight increase in pain since then, likely due to muscle atrophy and fatigue. He will remain out of work at this time. I would like to extend his FMLA for the next 8 weeks and his work status will be readdressed at his next appointment in 6 weeks. Follow up will be in 6 weeks, or sooner if needed. X-rays of the left lower extremity which were obtained while in the office today and were reviewed by me, Cici Sánchez PA-C, revealed intact orthopedic hardware with routine healing. Orders: Orders XR tibia fibula LT 2V Today S82.202A - Unspecified fracture of shaft of left tibia, initial encounter for closed fracture, S82.839A - Other fracture of upper and lower end of unspecified fibula, initial encounter for closed fracture Patient Instructions: Scribed by Ailyn Lau medical equipment repairer, for Cici Sánchez PA-C on 02/24/2024 at 11:35 am, EST. Coding Level of Care Code Est Pt Level 3 (80883) Diagnoses Closed fracture of distal end of left fibula with routine healing, unspecified fracture morphology, subsequent encounter S82.832D Encounter type: subsequent encounter Fracture healing: with routine healing Fracture morphology: unspecified fracture morphology Fracture type: closed Laterality: left Closed fracture of shaft of left tibia with routine healing, unspecified fracture morphology, subsequent encounter S82.202D Encounter type: subsequent encounter Fracture healing: with routine healing Fracture morphology: unspecified fracture morphology
== END 2024-02-24 11:54 | disposition home or self-care (01) ==
PROVIDERS: PCP Internal Medicine; Visit Provider Physician Assistant
DX: S82.832D Other fracture of upper and lower end of left fibula, subsequent encounter for closed fracture with routine healing (principal); S82.202D Unspecified fracture of shaft of left tibia, subsequent encounter for closed fracture with routine healing
CPT/HCPCS: 99213

== ENCOUNTER 2024-04-04 14:00 | Outpatient (RCR) | payer OTHER, SELFPAY ==
--- NOTE | 2024-01-06 14:16 | MHC.PT.EP ---
[facility] [place] [facility] [place] [facility] [place] [facility] [address] Chemo Emery [address] [phone] F: [phone] F: [phone] F: [phone] F: [phone] Physical Therapy Plan of Care Date of Evaluation: 01/06/24 Date of Surgery: 10/23/23 Diagnosis: This is a 33 yo male presenting to skilled PT with a script for fracture of shaft of L tibia. Assessment: This is a 33 yo male presenting to skilled PT with a script for fracture of shaft of L tibia. Patient is status post left fibula IM nailing and left tibia ORIF performed on 10/23/[address] Underwood. He states that he was in the hospital for a week due to pain. On 11/11/2023 the patient was placed in a short leg cast and instructed to remain non-weight bearing. On 12/09/23 the patient was placed in a tall walking boot. He was instructed to remain non-weight bearing. He reports pain at the lateral ankle at times when moving his ankle the wrong way, this is sharp. He does not have any pain at rest. Assessment reveals pain that ranges from up to a 4/10 at the worst. Patient demos decreased ankle ROM, strength of L ankle and LE, TTP throughout lateral ankle joint and lateral knee joint, increased swelling and impaired posture with forward head and rounded shoulders. He is still NWBing with a walking boot. Based on functional limitations, impaired QOL and pain tolerance patient is a good candidate for skilled PT 2x/wk for 8wks. Frequency and Duration: The patient will be seen 2x/wk for 8wks Short Term Goals: (in 4 weeks) Patient will improve ankle AAROM by at least 10 degs DF Patient will demo good understanding of safety, weightbearing and transfer techniques Patient will be I in [facility] Nursing Home Goals: (in 8 weeks) Patient will report 75% improvement in balance and strength of LLE as evidenced by reports no of falls or buckling in LE Patient will improve LEFs by 10 points Patient will demo WFL AROM of knee and ankle Patient will demo proper squat and lift techniques without increase in pain Patient will return to normal gait pattern without AD Treatment Plan: Modalities to reduce pain, spasms and effusion. Manual therapy to restore motion and function. Therapeutic exercise to improve strength and flexibility. Neuromuscular re-education for posture and balance. Therapeutic activities to return to functional activities of daily living. Electronically signed by: Ailyn Hernandez PT Please sign and return to therapist. Thank you for your referral.
--- NOTE | 2024-04-16 08:46 | MHC.PT.DC ---
[facility] [place] [facility] [place] [facility] [place] [facility] [address] [phone] F: [phone] F: [phone] F: [phone] F: [phone] Physical Therapy Discharge Report Diagnosis: This is a 33 yo male presenting to skilled PT with a script for fracture of shaft of L tibia. Date of Surgery: 10/23/23 Date of Evaluation: 01/06/24 Date of Discharge: 04/16/24 Treatments to Date: 11 Cancellations to Date: 0 No Shows to Date: 0 Discharge Status: Improved Function Independent with HEP Patient Elected to Stop Discharge Summary: Patient came to 11 visits of PT. He demos improved gait, pain and ROM. He was still weak and he was encouraged throughout our sessions and at DC the importance of strengthening for healing and preventing another injury. He has returned to work and self DC'd from PT. Electronically signed by: Ailyn Hernandez, PT Please sign and return to therapist. Thank you for your referral.
== END 2024-04-16 08:46 | disposition home or self-care (01) ==
LOC: HO.PTCHIC 14:00
PROVIDERS: PCP Internal Medicine; Visit Provider Physician Assistant
DX: S82.202D Unspecified fracture of shaft of left tibia, subsequent encounter for closed fracture with routine healing (principal); S82.832D Other fracture of upper and lower end of left fibula, subsequent encounter for closed fracture with routine healing
CPT/HCPCS: 97110; 97112; 97116; 97161; 97162; 97530

== ENCOUNTER 2024-04-10 08:47 | Outpatient (AMB) | payer OTHER, SELFPAY ==
--- NOTE | 2024-04-10 09:02 | A.OFFVIS_ITS ---
Intake Visit Reasons: OV-Left tib/fib imn and ORIF 10/23/23 NE Intake Note: Shahab is a 33 year old male who presents today for a follow up s/p left tib/fib imn and ORIF 10/23/23 NE. Patient reports he is doing well. No pain or discomfort. 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 Allergies Amoxicillin Allergy (Unknown, Uncoded 10/23/23 03:34) Unknown HPI HPI OV-Left tib/fib imn and ORIF 10/23/23 NE: Details: 33-year-old male who presents in the office today 5 months status post left fibula IM nailing and left tibia ORIF, which was performed on 10/23/[address] Underwood. I last saw the patient in the office on 02/24/2024 after his transition to a supportive sneaker which caused an increase in pain. His out-of-work status was extended at that time. While in the office today the patient reports he is doing well. He denies any pain or discomfort. 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 [facility] Social History Household Members: Family Housing: House Do you presently have visiting nurse or other home services: No Alcohol intake: current Alcohol intake frequency: a few times a month Patient Tobacco Use Status: Never used Tobacco Tobacco use type: Smokeless Tobacco e-Cigarette/Vaping Use: Currently Using Second Hand Smoke Exposure: No service: No Current occupational status: employed Current occupation: professional truck packer Review of Systems Const All systems reviewed & are unremarkable except as noted in HPI and below Physical Exam Const General: cooperative, healthy appearing and no acute distress Resp Effort & Inspection: normal respiratory effort and able to speak in complete sentences Cardio Rate: regular rate Peripheral pulses: Peripheral pulses 2+ throughout GI Palpation (GI): Soft to palpation Skin Lesions: no lesions Rashes: no rashes Extrem Other: Left lower extremity: Incision sites at the knee and ankle are clean, dry, and intact; completely healed without evidence of infection. Mild quad weakness with straight leg raise. No tenderness to palpation over the medial or lateral malleolus. No tenderness to palpation with tibia/fibula squeeze. Full ROM of the knee and ankle. NVI. Assessment & Plan Assessment & Plan (1) Fracture of distal fibula: Comment: Left fibula IM nailing 10/23/2023 NE Code(s): S82.839A - Other fracture of upper and lower end of unspecified fibula, initial encounter for closed fracture Category: Surgical Qualifiers: Encounter type: subsequent encounter Fracture healing: with routine healing Fracture morphology: unspecified fracture morphology Fracture type: closed Laterality: left Qualified Code(s): S82.832D - Other fracture of upper and lower end of left fibula, subsequent encounter for closed fracture with routine healing (2) Fracture of tibial shaft, left, closed: Comment: Left tibia ORIF 10/23/2023 NE Code(s): S82.202A - Unspecified fracture of shaft of left tibia, initial encounter for closed fracture Category: Surgical Qualifiers: Encounter type: subsequent encounter Fracture healing: with routine healing Fracture morphology: unspecified fracture morphology Qualified Co de(s): S82.202D - Unspecified fracture of shaft of left tibia, subsequent encounter for closed fracture with routine healing Plan Mr. Cadena is a 33-year-old male who presents in the office today 5 months status post left fibula IM nailing and left tibia ORIF, which was performed on 10/23/[address] Underwood. I last saw the patient in the office on 02/24/2024 after his transition to a supportive sneaker which caused an increase in pain. His out-of-work status was extended at that time. While in the office today the patient reports he is doing well. He denies any pain or discomfort. 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 The patient will return to work full-time, regular duty. Follow-up will be PRN, or sooner if needed. X-rays of the left tibia/fibula which were obtained while in the office today and were reviewed by me, Cici Sánchez PA-C, revealed: Intact orthopedic hardware with routine healing. Orders: Orders XR tibia fibula LT 2V Today S82.202D - Unspecified fracture of shaft of left tibia, subsequent encounter for closed fracture with routine healing, S82.832D - Other fracture of upper and lower end of left fibula, subsequent encounter for closed fracture with routine healing, S82.899A - Other fracture of unspecified lower leg, initial encounter for closed fracture Patient Instructions: Scribed by Ailyn Lau director medical economics, for Cici Gonzalo CASEY on 04/10/2024 at 8:52 am, EST. Coding Level of Care Code Est Pt Level 3 (53587) Diagnoses Closed fracture of distal end of left fibula with routine healing, unspecified fracture morphology, subsequent encounter S82.832D Encounter type: subsequent encounter Fracture healing: with routine healing Fracture morphology: unspecified fracture morphology Fracture type: closed Laterality: left Closed fracture of shaft of left tibia with routine healing, unspecified fracture morphology, subsequent encounter S82.202D Encounter type: subsequent encounter Fracture healing: with routine healing Fracture morphology: unspecified fracture morphology
== END 2024-04-10 09:25 | disposition home or self-care (01) ==
PROVIDERS: PCP Internal Medicine; Visit Provider Physician Assistant
DX: S82.832D Other fracture of upper and lower end of left fibula, subsequent encounter for closed fracture with routine healing (principal); S82.202D Unspecified fracture of shaft of left tibia, subsequent encounter for closed fracture with routine healing
CPT/HCPCS: 99213

== ENCOUNTER 2024-04-10 09:39 | Outpatient (REF) | payer OTHER, SELFPAY ==
--- NOTE | ~2024-04-10 | XR_ITS ---
EXAMINATION: XR TIBIA AND FIBULA, LEFT CLINICAL INFORMATION: Fractures of upper and lower end of left fibula. COMPARISON: 02/24/2024 TECHNIQUE: AP and lateral views of the left tibia and fibula were obtained. FINDINGS: Redemonstration of lukas and interlocking screw fixation device in the tibia spanning previously noted spiral oblique fracture. Hardware appears intact. Fracture line is still visible. There is some evidence of bridging callus formation. Redemonstration of plate and screw fixation in the distal fibula device transfixing previously noted comminuted fracture. Alignment is unchanged. Fracture line remains visible. Some bridging callus formation is visualized. XR/XR tibia fibula LT 2V IMPRESSION: 1. Redemonstration of lukas and interlocking screw fixation device in the tibia spanning previously noted spiral oblique fracture. Hardware appears intact. Fracture line is still visible. There is some evidence of bridging callus formation. 2. Redemonstration of plate and screw fixation device in the distal fibula transfixing previously noted comminuted fracture. Alignment is unchanged. Fracture line remains visible. Some bridging callus formation is visualized.
== END 2024-04-10 09:40 | disposition home or self-care (01) ==
LOC: HO.HOSX 09:39
PROVIDERS: Visit Provider Physician Assistant
DX: S82.832D Other fracture of upper and lower end of left fibula, subsequent encounter for closed fracture with routine healing (principal); S82.202D Unspecified fracture of shaft of left tibia, subsequent encounter for closed fracture with routine healing; S82.899A Other fracture of unspecified lower leg, initial encounter for closed fracture
CPT/HCPCS: 73590